=== PATIENT | male | born 1995 | race Two or more races ===

== ENCOUNTER 2025-04-29 00:18 | Emergency (ER) | payer SELFPAY ==
[~2025-04-29] VITALS: Ht 180.3 cm; Wt 128.2 kg
[2025-04-29 00:20] VITALS: BP 153/101; PULSE 73; RESP 24; TEMP 97.2; O2SAT 100
== END 2025-04-29 01:06 | disposition left against medical advice (07) ==
LOC: ER 00:18
DX: R10.9 Unspecified abdominal pain (principal); R11.2 Nausea with vomiting, unspecified; Z53.21 Procedure and treatment not carried out due to patient leaving prior to being seen by health care provider